=== PATIENT | male | born 1995 | race Caucasian/White ===

== ENCOUNTER 2019-09-10 15:03 | Emergency (ER) | payer BC ==
[2019-09-10 15:10] VITALS: TEMP 98.5
[2019-09-10] MEDS ORDERED: SODIUM CHLORIDE 0.9% 1,000 ML IV STA (15:29)
[2019-09-10] MEDS ORDERED: SODIUM CHLORIDE 0.9% 500 ML 500 ML IV STA (15:30)
[2019-09-10 15:38] LABS: Basophils % (A) 1 %; Eosinophils # (A) 0.4 k/uL (0-0.7); Eosinophils % (A) 4 %; HCT 47.7 % (39.0-53.0); HGB 16.7 gm/dL (13.0-17.5); Lymphocytes # (A) 2.2 k/uL (1.0-4.8); Lymphocytes % (A) 25 %; MCH 29.4 pg (25.0-35.0); MCV 83.8 fL (80.0-100.0); Mean Platelet Volume 7.9; Monocytes # (A) 0.6 k/uL (0-1.0); Monocytes % (A) 7 %; Neutrophils # (A) 5.5 k/uL (1.3-7.7); Neutrophils % (A) 62 %; Platelet Count 204 k/uL (150-450); RBC 5.69 m/uL (4.30-5.90); RDW 12.3 % (11.5-15.5); WBC 8.9 k/uL (3.8-10.6)
--- NOTE | 2019-09-10 15:38 | ED ---
Headache HPI - General Chief Complaint: Headache Stated Complaint: Poss stroke Time Seen by Provider: 09/10/19 15:18 Source: patient, family, RN notes reviewed Mode of arrival: ambulatory Limitations: no limitations - History of Present Illness Initial Comments: This a 24-year-old male with a history of apparently recently diagnosed hypertension was not a medications this time who presents with complaints of the onset of right hand and finger numbness followed by a lip and tongue numbness on the right side it started about 1245 today he had a 5/10 frontal headache also he has confusion. He also states his teeth 1, right side. The symptoms started going away after short period time he was left with a dull headache certainly better around 2:15 this afternoon took Tylenol around 155 With a headache aching leg on bed. He feels back to normal at this time except for the headache which she states is improved from what was earlier. Currently no fevers chills nausea vomiting sweats no recent illness no current loss of function is upper or lower extremities. He does state he has some blurry vision along with these other symptoms initially. None now. Patient does state he drinks a couple cups of coffee the morning and every couple days he might have a couple drinks. He does not smoke. No recent trauma no other current modifying factors MD Complaint: headache, other - Related Data Previous Rx's Medication Instructions Recorded Enalapril [Vasotec] 5 mg PO DAILY #30 tablet 09/10/19 Allergies Allergy/AdvReac Type Severity Reaction Status Date / Time No Known Allergies Allergy Verified 09/10/19 16:00 Review of Systems ROS Statement: Those systems with pertinent positive or pertinent negative responses have been documented in the HPI. ROS Other: All systems not noted in ROS Statement are negative. Past Medical History Past Medical History: Hypertension History of Any Multi-Drug Resistant Organisms: None Reported Past Surgical History: No Surgical Hx Reported Past Psychological History: No Psychological Hx Reported Smoking Status: Light tobacco smoker Past Alcohol Use History: Occasional Past Drug Use History: None Reported General Exam - General Exam Comments Initial Comments: This is a well-developed well-nourished awake alert oriented 3 male Limitations: no limitations General appearance: alert, in no apparent distress Head exam: Present: atraumatic, normocephalic, normal inspection Eye exam: Present: normal appearance, PERRL, EOMI. Absent: scleral icterus, conjunctival injection, periorbital swelling ENT exam: Present: normal exam, mucous membranes moist Neck exam: Present: normal inspection, full ROM, other (No stridor JVD or bruits). Absent: tenderness, meningismus, lymphadenopathy Respiratory exam: Present: normal lung sounds bilaterally. Absent: respiratory distress, wheezes, rales, rhonchi, stridor Cardiovascular Exam: Present: regular rate, normal rhythm, normal heart sounds. Absent: systolic murmur, diastolic murmur, rubs, gallop, clicks GI/Abdominal exam: Present: soft, normal bowel sounds. Absent: distended, tenderness, guarding, rebound, rigid, bruit, pulsatile mass Extremities exam: Present: normal inspection, full ROM, normal capillary refill. Absent: tenderness, pedal edema, joint swelling, calf tenderness Back exam: Present: normal inspection Neurological exam: Present: alert, oriented X3, CN II-XII intact Psychiatric exam: Present: normal affect, normal mood Skin exam: Present: warm, dry, intact, normal color. Absent: rash Course Vital Signs 09/10/19 09/10/19 15:06 16:35 Temperature 98.5 F Pulse Rate 67 78 Respiratory 18 16 Rate Blood Pressure 167/101 149/87 O2 Sat by Pulse 100 99 Oximetry Medical Decision Making - Medical Decision Making The patient is feeling much improved this time no further symptoms. His blood pressure has somewhat improved though still elevated. Due to the symptoms this is likely secondary to a spike in his blood pressure. He will be started on a low-dose of antihypertensive medications he is follow-up with Dr. heck when necessary he is in agreement with this. - Lab Data Result diagrams: 09/10/19 15:26 09/10/19 15:26 Lab Results 09/10/19 09/10/19 09/10/19 Range/Units 15:26 15:26 15:26 WBC 8.9 (3.8-10.6) k/uL RBC 5.69 (4.30-5.90) m/uL Hgb 16.7 (13.0-17.5) gm/dL Hct 47.7 (39.0-53.0) % MCV 83.8 (80.0-100.0) fL MCH 29.4 (25.0-35.0) pg MCHC 35.0 (31.0-37.0) g/dL RDW 12.3 (11.5-15.5) % Plt Count 204 (150-450) k/uL Neutrophils % 62 % Lymphocytes % 25 % Monocytes % 7 % Eosinophils % 4 % Basophils % 1 % Neutrophils # 5.5 (1.3-7.7) k/uL Lymphocytes # 2.2 (1.0-4.8) k/uL Monocytes # 0.6 (0-1.0) k/uL Eosinophils # 0.4 (0-0.7) k/uL Basophils # 0.0 (0-0.2) k/uL PT 10.4 (9.0-12.0) sec INR 1.0 (<1.2) APTT 29.1 (22.0-30.0) sec Sodium 139 (137-145) mmol/L Potassium 4.1 (3.5-5.1) mmol/L Chloride 104 (98-107) mmol/L Carbon Dioxide 25 (22-30) mmol/L Anion Gap 10 mmol/L BUN 17 (9-20) mg/dL Creatinine 0.99 (0.66-1.25) mg/dL Est GFR (CKD-EPI)AfAm >90 (>60 ml/min/1.73 sqM) Est GFR (CKD-EPI)NonAf >90 (>60 ml/min/1.73 sqM) Glucose 101 H (74-99) mg/dL Calcium 9.4 (8.4-10.2) mg/dL Total Bilirubin 0.4 (0.2-1.3) mg/dL AST 30 (17-59) U/L ALT 35 (4-49) U/L Alkaline Phosphatase 97 (38-126) U/L Creatine Kinase 128 (55-170) U/L Troponin I (0.000-0.034) ng/mL Total Protein 8.2 (6.3-8.2) g/dL Albumin 4.8 (3.5-5.0) g/dL Serum Alcohol <10 mg/dL 09/10/19 Range/Units 15:26 WBC (3.8-10.6) k/uL RBC (4.30-5.90) m/uL Hgb (13.0-17.5) gm/dL Hct (39.0-53.0) % MCV (80.0-100.0) fL MCH (25.0-35.0) pg MCHC (31.0-37.0) g/dL RDW (11.5-15.5) % Plt Count (150-450) k/uL Neutrophils % % Lymphocytes % % Monocytes % % Eosinophils % % Basophils % % Neutrophils # (1.3-7.7) k/uL Lymphocytes # (1.0-4.8) k/uL Monocytes # (0-1.0) k/uL Eosinophils # (0-0.7) k/uL Basophils # (0-0.2) k/uL PT (9.0-12.0) sec INR (<1.2) APTT (22.0-30.0) sec Sodium (137-145) mmol/L Potassium (3.5-5.1) mmol/L Chloride (98-107) mmol/L Carbon Dioxide (22-30) mmol/L Anion Gap mmol/L BUN (9-20) mg/dL Creatinine (0.66-1.25) mg/dL Est GFR (CKD-EPI)AfAm (>60 ml/min/1.73 sqM) Est GFR (CKD-EPI)NonAf (>60 ml/min/1.73 sqM) Glucose (74-99) mg/dL Calcium (8.4-10.2) mg/dL Total Bilirubin (0.2-1.3) mg/dL AST (17-59) U/L ALT (4-49) U/L Alkaline Phosphatase (38-126) U/L Creatine Kinase (55-170) U/L Troponin I <0.012 (0.000-0.034) ng/mL Total Protein (6.3-8.2) g/dL Albumin (3.5-5.0) g/dL Serum Alcohol mg/dL - EKG Data -: EKG Interpreted by Me EKG shows normal: sinus rhythm EKG Comments: Sinus rhythm a 65. Interval 162 QRS 122 QT since QTC 390/45 LVH with QRS widening noted. - Radiology Data Radiology results: report reviewed (I did), image reviewed Disposition Clinical Impression: Cephalgia, Hypertensive crisis Disposition: HOME SELF-CARE Condition: Good Instructions (If sedation given, give patient instructions): Acute Headache (ED), Hypertension (ED), Hypertensive Crisis (ED) Additional Instructions: Medication prescription sent to [facility] Prescriptions: Enalapril [Vasotec] 5 mg PO DAILY #30 tablet Is patient prescribed a controlled substance at d/c from ED?: No Referrals: Dick Floyd DO [Primary Care Provider] - 1-2 days
[2019-09-10 15:51] LABS: ALT 35 U/L (4-49); AST 30 U/L (17-59); African American GFR (CKD) >90 (>60 ml/min/1.73 sqM); Albumin 4.8 g/dL (3.5-5.0); Alcohol <10 mg/dL; Alkaline Phosphatase 97 U/L (38-126); Anion Gap 10 mmol/L; Blood Urea Nitrogen 17 mg/dL (9-20); Calcium 9.4 mg/dL (8.4-10.2); Carbon Dioxide 25 mmol/L (22-30); Chloride 104 mmol/L (98-107); Creatine Kinase 128 U/L (55-170); Glucose 101 mg/dL (74-99); Non-African American GFR(CKD) >90 (>60 ml/min/1.73 sqM); Potassium 4.1 mmol/L (3.5-5.1); Sodium 139 mmol/L (137-145); Total Bilirubin 0.4 mg/dL (0.2-1.3); Total Protein 8.2 g/dL (6.3-8.2)
--- NOTE | 2019-09-10 16:01 | XR ---
EXAMINATION TYPE: XR chest 2V DATE OF EXAM: 09/10/2019 COMPARISON: NONE HISTORY: Chest pain TECHNIQUE: Frontal and lateral views of the chest are obtained. FINDINGS: There is no focal air space opacity. No evidence for pneumothorax. No pleural effusion. The cardiac silhouette size is within normal limits. The osseous structures are grossly intact. IMPRESSION: 1. No acute cardiopulmonary process.
--- NOTE | 2019-09-10 16:06 | CT ---
EXAMINATION TYPE: CT brain wo con DATE OF EXAM: 09/10/2019 COMPARISON: None HISTORY: Right sided facial numbness with headache and visual disturbance CT DLP: 1220.[address] of the brain was performed. The ventricles, basal cisterns and sulci overlying the cerebral convexities demonstrate a normal appe arance. There is no evidence for intracranial hemorrhage or sulcal effacement. No mass effects are seen. Osseous calvarium is intact. If symptoms persist consider MRI as clinically warranted. IMPRESSION: 1. No acute intracranial process is seen at this time.
[2019-09-10 16:13] LABS: Partial Thromboplastin Time 29.1 sec (22.0-30.0); Prothrombin Time 10.4 sec (9.0-12.0)
[2019-09-10 16:35] VITALS: BP 149/87; PULSE 78; RESP 16
--- NOTE | 2019-09-10 16:39 | CT ---
EXAMINATION TYPE: CT angio head neck DATE OF EXAM: 09/10/2019 HISTORY: Right sided facial numbness with headache and visual disturbance COMPARISON: NONE CT DLP: 597.9 mGycm. Automated Exposure Control for Dose Reduction was Utilized. TECHNIQUE: CTA scan of the head and neck are performed with IV Contrast, patient injected with 65 mL of Isovue 370, axial images are obtained, coronal and sagittal reformatted images are reviewed. Thre e-D reconstructed images are created on an independent workstation and reviewed. FINDINGS: Carotid/Vascular Structures: Incidental ascending aorta measuring up to 3.8 cm in diameter axial imag e 3. Normal three-vessel origin from the aortic arch. No significant plaque or stenosis in common or internal carotid arteries bilaterally including a level of carotid bulbs. Patent bilateral external c arotid arteries without significant plaque or stenosis. Patent codominant vertebral arteries to basilar junction. Hypoplastic bilateral posterior communicati ng arteries. No significant focal stenosis or aneurysmal change. Anterior circulation shows no signif icant focal stenosis or aneurysmal change. Patent anterior communicating artery is felt present. Other: Straightening of cervical spine may be positional. Curvilinear density anterior superior media stinum anterior to aortic arch could reflect pericardial fluid axial image 16. IMPRESSION: No significant stenosis in common or internal carotid arteries bilaterally. No significa nt stenosis or aneurysmal change at level of [place] of [place].
== END 2019-09-10 17:28 | disposition home or self-care (01) ==
LOC: EC 15:03
DX: I16.9 Hypertensive crisis, unspecified (principal); R51 Headache; I10 Essential (primary) hypertension; F17.200 Nicotine dependence, unspecified, uncomplicated
CPT/HCPCS: 36415; 93005; 80053; 82550; 84484; 85025; 85610; 85730; 80320; 71046; 70496; 70450; 70498; 99284; 96360; 96361; Q9967